=== PATIENT | male | born 1950 | race Caucasian/White ===

== ENCOUNTER 2016-07-10 00:24 | Day surgery (SDC) | payer OTHER ==
[~2016-07-10] VITALS: Ht 172.7 cm; Wt 75.0 kg
[2016-07-10] MEDS ORDERED: 0.9% Sodium Chloride 1,000 ML IV SCH (06:00)
[2016-07-10] MEDS ORDERED: Sodium Chloride LOK Flush 10 mL Syringe IV PRN (06:00)
[2016-07-10] MEDS ORDERED: fentaNYL-PF 50 mCg/mL 2 mL Inj IVPUSH PRN (06:00)
[2016-07-10] MEDS ORDERED: LEVO175T2 PO (13:37)
[2016-07-10] MEDS ORDERED: BUDE8.43 NS (13:37)
[2016-07-10] MEDS ORDERED: INSU100V7 SUBQ (13:37)
[2016-07-10] MEDS ORDERED: BUDE10.2 INHALATION (13:37)
[2016-07-10] MEDS ORDERED: NIAC500T2 PO (13:37)
[2016-07-10] MEDS ORDERED: ENAL5TAB PO (13:37)
[2016-07-10] MEDS ORDERED: INSU100I18 SUBQ (13:37)
[2016-07-10 13:38] VITALS: BP 171/85; PULSE 86; RESP 16; O2SAT 100
[2016-07-10] MEDS ORDERED: fentaNYL-PF 50 mCg/mL 2 mL Inj ONE (13:39)
[2016-07-10] MEDS ORDERED: 0.9% Sodium Chloride 1,000 ML IV ONE (14:01)
[2016-07-10 14:14] VITALS: BP 153/79; PULSE 86; RESP 16; O2SAT 100
[2016-07-10 14:24] VITALS: BP 160/79; PULSE 84; RESP 16; O2SAT 100
--- NOTE | 2016-07-11 07:39 | ENDO ---
[address] [address] ENDOSCOPY PROCEDURE PATIENT: LYDIA HUSTON : 1950 MR#: [id number] ADMIT: 07/10/2016 JOB ID: [id number] DATE OF SERVICE: 07/10/2016 PROCEDURE PERFORMED: Colonoscopy. INDICATIONS: Screening. ASA CLASSIFICATION: The patient's ASA classification is II. MALLAMPATI SCORE: Mallampati score was 2. MEDICATIONS: 1. Versed 5 mg. 2. Fentanyl 100 mcg. INSTRUMENT USED: PCF-H180AL. PREPARATION QUALITY: Fair. PROCEDURE DETAILS: After informed consent was obtained, the patient was brought into the GI suite, where he was placed on oxygen via nasal cannula and monitored with continuous pulse oximeter, telemetry, and blood pressure monitoring. A time-out was performed. Then, he was placed in the left lateral decubitus position and medications were administered for sedation. Digital rectal exam with palpation of the prostate was performed which was unremarkable. The colonoscope was then inserted into the rectum and advanced under direct visualization to the cecum, which was identified by the presence of the ileocecal valve and appendiceal orifice. Once the INCOMPLETE DICTATION: Dictation ends here. ;
--- NOTE | 2016-07-11 07:43 | ENDO ---
[address] [address] ENDOSCOPY PROCEDURE PATIENT: LYDIA HUSTON : 1950 MR#: [id number] ADMIT: 07/10/2016 JOB ID: [id number] DATE OF SERVICE: 07/10/2016 PROCEDURE: Colonoscopy. INDICATIONS: Screening. ASA CLASSIFICATION: II MALLAMPATI SCORE: 2 MEDICATIONS: Versed at 5 mg, fentanyl 100 mcg. INSTRUMENT USED: PCF-H180AL. PREP QUALITY: Fair. PROCEDURE DETAILS: After informed consent was obtained, the patient was brought to the GI suite where he was placed on oxygen via nasal cannula and monitored with continuous pulse oximeter, telemetry, and blood pressure monitoring. A time-out was performed. Then, he was placed in a left lateral decubitus position and medications were administered for sedation. Digital rectal exam was performed which was unremarkable. The colonoscope was then inserted into the rectum and advanced under direct visualization to the cecum, which was identified by the presence of the ileocecal valve and appendiceal orifice. Once the cecum was reached, colonoscope was withdrawn back into the rectum as the mucosa and lumen were examined. In the rectum, retroflexion was performed. Following retroflexion, remaining air in the rectum was suctioned, and procedure was completed. FINDINGS: A diminutive polyp was seen in the transverse colon that was removed with cold biopsy forceps. Otherwise, normal exam from rectum to cecum. IMPRESSION: Transverse colon polyp. RECOMMENDATIONS: Repeat colonoscopy pending polyp pathology results. COMPLICATIONS: None. ESTIMATED BLOOD LOSS: Less than 5 mL.
--- NOTE | 2016-07-13 15:45 | PATH ---
SURGICAL PATHOLOGY Attending Physician:Francesca Jiménez CASE STATUS: Signed Out PATIENT NAME: LYDIA HUSTON PID: [id number] : 1950 DATE COLLECTED:07/10/2016 00:00 SPECIMEN: Colon, Biopsy CLINICAL HISTORY: 1). TRANSVERSE COLON POLYP FINAL DIAGNOSIS: 1.TRANSVERSE COLON POLYP: POLYPOID-SHAPED FRAGMENT OF COLON MUCOSA CONSISTENT WITH MUCOSAL POLYPOID REDUNDANCY. NEGATIVE FOR DYSPLASIA AND MALIGNANCY. ICD10 K63.5 GROSS DESCRIPTION: The specimen is received in one formalin filled container labeled with the patient's name, sublabeled "transverse polyp" and consists of a 0.3 x 0.2 x 0.2 CM portion of tissue which is entirely submitted in one cassette. 07/11/2016 DAC MICRO DESCRIPTION: See diagnosis. ICD-9 CODES: CPT CODES: 1: 85089 Electronically Signed Out Torres Lester MD [facility]ology [facility] [address] [facility], [place] [address] Technical component performed at [facility], [facility] [address], [place], [address]
== END 2016-07-10 23:59 | disposition home or self-care (01) ==
LOC: END 00:24
PROVIDERS: ATTEND Internal Medicine Gastroenterology
DX: Z12.11 Encounter for screening for malignant neoplasm of colon (principal); K63.5 Polyp of colon; E10.9 Type 1 diabetes mellitus without complications; G47.30 Sleep apnea, unspecified; J45.909 Unspecified asthma, uncomplicated; J44.9 Chronic obstructive pulmonary disease, unspecified; Z79.4 Long term (current) use of insulin
CPT/HCPCS: 45380; 99153; G0500; J2250; J3010; J7030